=== PATIENT | male | born 1955 | race Caucasian/White ===

== ENCOUNTER 2019-11-30 19:34 | Emergency (ER) | payer MEDICAID, MEDICARE, SELFPAY ==
[~2019-11-30] VITALS: Ht 180.3 cm; Wt 101.8 kg
[2019-11-30 20:37] LABS: BASOPHILS # (AUTO) 0.04 x10^3/uL (0-0.1); BASOPHILS % (AUTO) 0 % (0-1); EOSINOPHILS % (AUTO) 2 % (1-7); LYMPHOCYTES # (AUTO) 2.69 x10^3/uL (1-3.4); LYMPHOCYTES % (AUTO) 25 % (22-44); MD NO; MEAN CORPUSCULAR HEMOGLOBIN 30.1 pg (27.5-34.5); MEAN CORPUSCULAR HGB CONC 33.2 g/dL (33.2-36.2); MEAN CORPUSCULAR VOLUME 90.6 fL (81-97); MEAN PLATELET VOLUME 8.9 fL (7.4-10.4); MONOCYTES # (AUTO) 0.88 x10^3/uL (0.2-0.8); MONOCYTES % (AUTO) 8 % (2-9); NEUTROPHILS # (AUTO) 7.11 x10^3/uL (1.8-6.8); NEUTROPHILS % (AUTO) 65 % (42-75); PLATELET COUNT 284 x10^3/uL (130-400); RED BLOOD COUNT 5.84 x10^6/uL (4.38-5.82); RED CELL DISTRIBUTION WIDTH 13.8 % (9.4-14.8)
[2019-11-30 20:44] LABS: ALBUMIN 3.8 g/dL (3.4-5.0); ANION GAP 4 mmol/L (5-15); CALCIUM 9.3 mg/dL (8.5-10.1); CHLORIDE 110 mmol/L (98-107)
[2019-11-30 20:48] LABS: ALANINE AMINOTRANSFERASE 55 U/L (12-78); ALKALINE PHOSPHATASE 103 U/L (45-117); BILIRUBIN,TOTAL 0.3 mg/dL (0.2-1.0); CREATININE 1.05 mg/dL (0.7-1.3); TOTAL PROTEIN 7.5 g/dL (6.4-8.2)
[2019-11-30 21:44] LABS: CULTURE INDICATED? YES; MICROSCOPIC INDICATED
[2019-11-30] MEDS ORDERED: CEFTRIAXONE 1,000 MG IM ONE (23:30)
[2019-11-30] MEDS ORDERED: CEFTRIAXONE 1,000 MG ONE (23:53)
[2019-11-30] MEDS ORDERED: LIDOCAINE-MPF 1%, 2ML ONE (23:54)
[2019-12-01] MEDS ORDERED: LIDOCAINE 1%, 2ML INFIL ONE
[2019-12-01 00:22] VITALS: BP 145/98
== END 2019-12-01 00:25 | disposition home or self-care (01) ==
LOC: ED 22:23
DX: N30.01 Acute cystitis with hematuria (principal)
CPT/HCPCS: 36415; 74176; 80053; 81001; 85025; 87086; 87491; 87591; 96372; 99284; J0696; J3490